=== PATIENT | male | born 1945 | race Caucasian/White ===

== ENCOUNTER → 2021-06-05 | Outpatient (CLI) | payer MEDICARE, BC ==
[~2021-06-05] VITALS: Ht 185.4 cm; Wt 113.4 kg
[~2021-06-05] MED LIST: ASPIR 8181 MG PO; ASPIRIN325 PO; CO Q-10100 MG PO; COLACE100 MG PO; FLOMAX0.4 MG PO; HYDROCODONE-AP1 EAC6 PO; LIPITOR 20 MG T20 M1 PO; LISINOPRIL10 MG PO; OMEGA-31000 M1 PO; OXYCODONE HCL 55 MG PO; UNICOMPLEX M TA1 TA1 PO; VITAMIN D3 PO; VITAMIN E400 UNIT PO; WARFARIN SODIUM5 MG PO; XARELTO10 MG PO; XARELTO20 MG PO
[2021-06-05 09:23] VITALS: BP 153/80
[2021-06-05 09:36] LABS: HEMATOCRIT 42.4 % (42.0-52.0); HEMOGLOBIN 13.8 gm/dL (14.0-18.0); MCH 30.9 pg (26.0-34.0); MCHC 32.6 g/dL (28.0-37.0); MCV 94.8 fL (80.0-100.0); RBC 4.47 mil/uL (4.50-6.00); RDW-CV 16.1 % (10.5-14.5); WBC 7.2 thou/uL (4.0-11.0)
[2021-06-05 09:37] LABS: URINE BILIRUBIN NEGATIVE (Negative); URINE BLOOD NEGATIVE (Negative); URINE CLARITY CLEAR; URINE COLOR YELLOW; URINE GLUCOSE-RANDOM NEGATIVE (Negative); URINE KETONES NEGATIVE (Negative); URINE LEUKOCYTES NEGATIVE (Negative); URINE NITRITE NEGATIVE (Negative); URINE PROTEIN NEGATIVE (Negative); URINE SPECIFIC GRAVITY 1.025 (1.005-1.030); URINE UROBILINOGEN 0.2 E.U./dl (0.2-1.0)
[2021-06-05 09:41] LABS: CALCIUM 8.9 mg/dL (8.5-10.1); POTASSIUM 4.6 mmol/L (3.5-5.1)
[2021-06-05 09:45] LABS: APTT 28.8 Seconds (25.0-31.3); INR 1.1; PROTIME 11.4 Seconds (9.20-11.50)
[2021-06-05 09:46] LABS: ALBUMIN 4.1 g/dL (3.4-5.0); TOTAL PROTEIN 6.6 g/dL (6.4-8.2)
--- NOTE | 2021-06-05 11:13 | EKG ---
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1945 Requested By: Iggy Amaya Order Number: [id number] Reading MD: Iggy Amaya Measurements Intervals [place] Rate: 45 P: 0 SC: 71 QRS: -37 QRSD: 101 T: 64 QT: 479 QTc: 415 Interpretive Statements atrial fibrillation Left axis deviation Consider anterior infarct Compared to ECG 07/17/2017 21:30:16 rate has slowed Myocardial infarct finding still present Electronically Signed On 06-05-2021 11:12:49 CDT by Iggy Amaya [email or web address] <ELECTRONICALLY SIGNED> By: Iggy Amaya MD, [facility] 06/05/21 1112 1013 1013 Iggy Amaya MD, [facility] /EPI
[2021-06-05 12:57] VITALS: BP 137/71
[2021-06-05 13:10] VITALS: BP 140/88
[2021-06-05 13:31] VITALS: BP 144/79
[2021-06-05 13:56] VITALS: BP 146/74
--- NOTE | 2021-06-05 15:01 | CARD ---
[address] [address] CARDIAC CATH REPORT Name: CHEVY ESTEBAN Room: [facility].#: [id number] Admission: 06/05/21 Attend Phys: Monie Thayer MD, Discharge: Date of : 41 Report #: [id number] THIS REPORT FOR: cc: Hudson Olsen MD, Matthew W. MD Blick, David R. MD [facility] ~ APPROVED REPORT Study performed: 06/05/2021 10:17:44 Patient Status: Out-Patient Room #: Event Personnel: Iggy Amaya Home School Coordinator, Chele Ge RN RN, Aba Newsome MANUAL ARTS THERAPY TEACHER Monitor, Zi Shetty RTR Scrub Exam: Insertion of Single Chamber Permanent Pacemaker Indications: Sick Sinus Syndrome/Tachy Alon Syndrome The patient is a 76 year-old male with a history of Atrial Fibrillation. Patient Info Antiplatelet Therapy: asa Anticoagulant Therapy: warfarin was discontinued 5 days before the procedure Conscious Sedation Start time: 1136 End Time: 1234 Implanted Devices: Single lead PPM Procedure The patient underwent informed consent. We discussed the details of the procedure including the risks, which include, but not limited to bleeding, infection, vascular damage, cardiac perforation, and pneumothorax. He understood these risks and was willing to proceed. As such, he was brought to the EP/Cardiac Catheterization laboratory in a fasting and sedated state and prepped and draped in a sterile fashion, received IV antibiotics prior to initiation of the procedure and a venogram was performed showing patency of the left axillary vein. The patient underwent conscious sedation, with no related complications. The patient was brought to the EP/Cardiac Catheterization laboratory and the left chest and shoulder were prepped and draped [place] [address] CARDIAC CATH REPORT Name: CHEVY ESTEBAN Room: [facility]#: [id number] Admission: 06/05/21 Attend Phys: Monie Thayer MD, Discharge: Date of : 41 Report #: [id number] During this case, Fluoroscopy and low osmolar contrast were used for imaging. IV conscious sedation was used throughout procedure with appropriate monitoring and was performed in the presence of a registered nurse who was an independent trained observer other than the physician performing the procedure. The left subclavian region was infiltrated with 2% Lidocaine subcutaneous anesthesia. A transverse incision was made in the left upper chest cavity. The subcutaneous pocket was formed via blunt dissection. Percutaneous venous access was achieved and an introducer sheath was inserted into the left Subclavian vein. Sheaths were positions using the modified Seldinger technique Through the introducer sheaths the ventricular lead wire was positioned in the right atrial appendage and right ventricular apex respectively. Utilizing fluoroscopic guidance, the ventricular lead wire was advanced over the wires and positioned in the right atria and right ventricle respectively. Capturing and sensing thresholds were verified. Electrode Parameters R Wave: 11.9 mv Ventricular Threshold: 0.3 v @ o.5 ms Ventricular Resistance: 757 ohm Single Chamber The ventricular lead was attached to the appropriate receptacle on the pulse generator and set screws firmly tightened to insure adequate contact and stability. The lead and pulse generator were placed into the subcutaneous pocket. Sharp and sponge counts were confirmed to be correct. At this time the pocket was closed subcutaneously with a 0 Vicryl and the skin was closed with a 4.0 Vicryl. The operative site was dressed in sterile fashion with skin affix and the patient was transferred to the floor in stable condition. Complications The patient tolerated the procedure well and there were no complications associated with the procedure. Pacemaker pocket was irrigated with D-stat flowable solution prior to inserting the pacemaker generator since the patient had [place] [address] CARDIAC CATH REPORT Name: CHEVY ESTEBAN Room: [facility]#: [id number] Admission: 06/05/21 Attend Phys: Monie Thayer MD, Discharge: Date of : 41 Report #: [id number] Findings Specimens Removed: No Estimated Blood Loss: less than 5cc Conclusion Successful placement of a single chamber MRI compatible Medtronic pacemaker lead and generator. <ELECTRONICALLY SIGNED> By: Iggy Amaya MD, [facility] 06/05/21 1501 1501 1501David Ofelia Amaya MD, [facility] /INF
--- NOTE | 2021-06-05 15:07 | EKG ---
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1945 Requested By: Iggy Amaya Order Number: [id number] Reading MD: Iggy Amaya Measurements Intervals [place] Rate: 60 P: 0 DE: 165 QRS: -71 QRSD: 201 T: 95 QT: 521 QTc: 521 Interpretive Statements Ventricular-paced complexes No further rhythm analysis attempted due to paced rhythm Compared to ECG 06/05/2021 10:13:19 paced beats are now noted Electronically Signed On 06-05-2021 15:07:24 CDT by Iggy Amaya [email or web address] <ELECTRONICALLY SIGNED> By: Iggy Amaya MD, [facility] 06/05/21 1507 1340 1340 Iggy Amaya MD, [facility] /EPI
--- NOTE | 2021-06-05 15:08 | EKG ---
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
== END | disposition home or self-care (01) ==
LOC: M.CL 08:59
PROVIDERS: Internal Medicine Cardiovascular Disease; ATTEND Internal Medicine
DX: I49.5 Sick sinus syndrome (principal); I48.91 Unspecified atrial fibrillation; I10 Essential (primary) hypertension; E78.5 Hyperlipidemia, unspecified; Z98.890 Other specified postprocedural states; Z79.899 Other long term (current) drug therapy; Z20.822 Contact with and (suspected) exposure to COVID-19; Z96.642 Presence of left artificial hip joint; Z79.01 Long term (current) use of anticoagulants; Z79.82 Long term (current) use of aspirin

== ENCOUNTER → 2021-12-17 | Outpatient (CLI) | payer MEDICARE, BC ==
[2021-12-17 10:54] LABS: INR 1.8; PROTIME 17.7 Seconds (9.20-11.50)
== END ==
LOC: M.LAB 10:21
PROVIDERS: ATTEND Internal Medicine
DX: I48.0 Paroxysmal atrial fibrillation (principal)